=== PATIENT | male | born 1940 | race Caucasian/White ===

== ENCOUNTER 2025-01-02 10:03 | Emergency (ER) | payer OTHER ==
[~2025-01-02] VITALS: Ht 170.2 cm; Wt 108.9 kg
[2025-01-02] MEDS ORDERED: Diltiazem HCl 5 MG / ML 5ML Vial IV ONE (10:25)
[2025-01-02 10:41] LABS: BASOPHILS ABSOLUTE AUTO 0.07 K/mm3 (0.00-0.23); BASOPHILS PERCENT AUTO 1 % (0-2); EOSINOPHILS ABSOLUTE AUTO 0.22 K/mm3 (0.00-0.68); EOSINOPHILS PERCENT AUTO 2 % (0-6); Hemoglobin 13.3 g/dL (13.5-17.5); IMMATURE GRAN ABSOLUTE AUTO 0.04 K/mm3 (0.00-0.10); IMMATURE GRAN PERCENT AUTO 0 % (0-1); LYMPHOCYTES ABSOLUTE AUTO 3.57 K/mm3 (0.84-5.20); LYMPHOCYTES PERCENT AUTO 27 % (21-46); MONOCYTES ABSOLUTE AUTO 1.05 K/mm3 (0.16-1.47); MONOCYTES PERCENT AUTO 8 % (4-13); Mean Corpuscular HGB 29.8 pg (26.0-34.0); Mean Corpuscular HGB Conc 33.3 g/dL (31.5-36.5); Mean Corpuscular Volume 90 fL (80-100); Mean Platelet Volume 9.6 fL (9.1-12.4); NEUTROPHILS ABSOLUTE AUTO 8.32 K/mm3 (1.96-9.15); NEUTROPHILS PERCENT AUTO 63 % (41-73); Platelet Count 324 K/mm3 (150-400); RDW Coefficient Variation 13.5 % (11.7-14.2); RDW Standard Deviation 44.2 fL (35.1-46.3); Red Blood Cell Count 4.46 M/mm3 (4.30-5.90); White Blood Cell Count 13.27 K/mm3 (4.00-11.30)
[2025-01-02 11:12] LABS: Albumin, Blood 3.6 g/dL (3.4-5.0); Albumin/Globulin Ratio 0.9 (0.8-1.8); Bilirubin, Total 0.5 mg/dL (0.1-1.0); Bun/Creatinine Ratio 17.4 (12.0-20.0); Calcium, Blood 9.2 mg/dL (8.5-10.1); Creatinine, Blood 1.09 mg/dL (0.60-1.20); Globulin, Blood 3.8 g/dL (2.2-4.0); Potassium, Blood 3.9 mmol/L (3.5-5.5); Thyroid Stimulating Hormone 2.12 uIU/mL (0.360-4.800); Total Protein, Blood 7.4 g/dL (6.4-8.2)
[2025-01-02] MEDS ORDERED: FINA5 PO (12:06)
[2025-01-02] MEDS ORDERED: OZEMPIC1 MG/0.72 SC (12:06)
[2025-01-02] MEDS ORDERED: INSULANI SC (12:13)
[2025-01-02] MEDS ORDERED: LOSA50 PO (12:15)
[2025-01-02] MEDS ORDERED: METF500 PO (12:16)
[2025-01-02] MEDS ORDERED: TAMS.4ER PO (12:19)
[2025-01-02] MEDS ORDERED: Hair, Skin & N1 EACH PO (12:20)
[2025-01-02 12:38] LABS: Influenza A, PCR NEGATIVE (NEGATIVE); Influenza B, PCR NEGATIVE (NEGATIVE); Resp Syncytial Virus, PCR NEGATIVE (NEGATIVE); SARS-Cov-2 (COVID-19) PCR, MMC NEGATIVE (NEGATIVE)
[2025-01-02] MEDS ORDERED: Apixaban 5 MG Tab PO ONE (13:05)
[2025-01-02] MEDS ORDERED: Metoprolol Succinate 50 MG TABCR PO ONE (13:05)
[2025-01-02] MEDS ORDERED: ELIQUIS5 M2 PO (13:07)
[2025-01-02] MEDS ORDERED: METO50ER PO (13:07)
== END 2025-01-02 13:23 | disposition home or self-care (01) ==
LOC: ER 10:03
PROVIDERS: Emergency Medicine
DX: I48.0 Paroxysmal atrial fibrillation (principal); J06.9 Acute upper respiratory infection, unspecified; Z79.4 Long term (current) use of insulin; Z79.85 Long-term (current) use of injectable non-insulin antidiabetic drugs; Z79.84 Long term (current) use of oral hypoglycemic drugs; Z79.899 Other long term (current) drug therapy
CPT/HCPCS: 0241U; 71046; 80053; 83880; 84443; 84484; 85025; 93005; 93010; 96374; 99284-25; A9270

== ENCOUNTER 2025-09-18 05:52 | Day surgery (SDC) | payer OTHER | END 2025-09-18 23:01 | disposition home or self-care (01) | LOC: MHTC 05:52 | DX: I48.91 Unspecified atrial fibrillation (principal); E11.22 Type 2 diabetes mellitus with diabetic chronic kidney disease; N18.30 Chronic kidney disease, stage 3 unspecified; I12.9 Hypertensive chronic kidney disease with stage 1 through stage 4 chronic kidney disease, or unspecified chronic kidney disease; E78.5 Hyperlipidemia, unspecified; G47.33 Obstructive sleep apnea (adult) (pediatric) ==